=== PATIENT | female | born 1965 | race Caucasian/White ===

== ENCOUNTER 2019-01-08 06:01 | Day surgery (SDC) | payer OTHER ==
[2019-01-08] MEDS ORDERED: Ketamine HCl 50 MG/ML IV ONE (06:02)
[2019-01-08] MEDS ORDERED: DIPRIVAN 200 MG/20 ML IV ONE ×2 (06:02)
[2019-01-08] MEDS ORDERED: Lactated Ringers 1,000 ML IV SCH (06:30)
--- NOTE | 2019-01-08 08:28 | OP ---
SURGERY DATE/TIME: 01/08/2019 0718 PREOPERATIVE DIAGNOSIS: History of colon polyps. POSTOPERATIVE DIAGNOSIS: Normal colon. PROCEDURE: Colonoscopy. SURGEON: Dr. Padron. ANESTHESIA: MAC. Medications given by anesthesia department. HISTORY: The patient is a 53 year-old white female presenting now for colonoscopic evaluation. She reports she had history of colon polyps five years ago and her father of colon cancer. The patient is felt the need to have endoscopic evaluation. She was appraised of the risks of the procedure including the risk of perforation, phlebitis, untoward reaction to medication, bleeding and missed lesions. The patient verbalized her understanding and desired to have the procedure performed. DESCRIPTION OF PROCEDURE: The patient was given the medications by the anesthesia department. She had continuous pulse oximetry, ECG monitoring, intermittent blood pressure monitoring and tidal CO2 monitoring during the examination. She was placed in the left lateral decubitus position. A digital rectal examination was performed and revealed normal anal sphincter tone and no masses. The flexible Olympus pediatric colonoscope was used to intubate the rectum. A view of the colon was developed sequentially to the cecum. Upon insertion and withdrawal, including a retroflex view in the rectum, no mucosal lesions were encountered. The scope was removed from the patient who tolerated the procedure well and was sent back to OP recovery in good condition. Prep was noted to be good.
[2019-01-08 08:40] VITALS: O2SAT 99
[2019-01-08 08:59] VITALS: BP 140/85; PULSE 75
== END 2019-01-08 09:16 | disposition home or self-care (01) ==
LOC: SDC 06:01
PROVIDERS: ATTEND Family Medicine
DX: Z86.010 Personal history of colon polyps (principal); Z80.0 Family history of malignant neoplasm of digestive organs
CPT/HCPCS: J2704

== ENCOUNTER 2021-07-17 06:58 | Day surgery (SDC) | payer OTHER ==
[2021-07-17] MEDS ORDERED: Lactated Ringers 1,000 ML IV SCH (07:30)
[2021-07-17] MEDS ORDERED: ASTRINGYN 8 GM TP ONE (07:43)
[2021-07-17] MEDS ORDERED: XYLOCAINE 1%/Epi 1:100000 MDV 20 ML ONE (07:44)
[2021-07-17] MEDS ORDERED: TORAdol 30 mg Injection ONE (09:07)
[2021-07-17] MEDS ORDERED: Versed 2 MG/2 ML Injection ONE (09:13)
[2021-07-17] MEDS ORDERED: SUBLIMAZE 100 MCG/2 ML ONE (09:13)
[2021-07-17] MEDS ORDERED: DIPRIVAN 200 MG/20 ML IV ONE (09:15)
[2021-07-17] MEDS ORDERED: Decadron 4 MG INJ ONE (09:15)
[2021-07-17] MEDS ORDERED: Zofran 4 MG/2 ML VIAL ONE (09:15)
[2021-07-17 11:00] VITALS: O2SAT 98
[2021-07-17 11:17] VITALS: BP 124/68; PULSE 72
--- NOTE | 2021-07-18 08:06 | OP ---
SURGERY DATE/TIME: 07/17/2021 0936 PREOPERATIVE DIAGNOSIS: Recurrent cervical dysplasia. POSTOPERATIVE DIAGNOSIS: Recurrent cervical dysplasia. PROCEDURE: Loop electrosurgical excision procedure. SURGEON: Stanton Velasco D.O. RATINGS ANALYST: Lissette Marie surgical coordinator. ANESTHESIA: General. ESTIMATED BLOOD LOSS: Minimal. COMPLICATIONS: None. INDICATIONS: The risks, benefits, indications and alternatives of the procedure were reviewed with the patient prior to procedure. The patient understood the risk of infection, bleeding, bowel injury, bladder injury, cervical laceration, pelvic infection associated with the surgery however desires to have this surgery as a possible means to alleviate her current medical condition. DESCRIPTION OF PROCEDURE AND FINDINGS: At this point the patient is taken to the operating room, given general sedation, placed in dorsal lithotomy position, prepped and draped in the usual sterile fashion. A coated speculum is then placed in the patient's vagina and the cervix was injected circumferentially with 1% lidocaine with epinephrine and approximately 6 cc of solution was used. From this point the loop instrument was then used with a right to left motion and a depth of 7 to 8 mm of endocervical tissue was excised without complication. An additional 2 to 3 mm of endocervical tissue was taken in a similar fashion with a right to left motion. From this point the loop tobacco drummer ball was used to coagulate the surface of the cervix enhancing hemostasis. From this point all instruments were then removed from the patient's vaginal region. The patient was taken out of the dorsal lithotomy position, was then taken to the recovery room in stable condition. All instruments and laps were accounted for x2.
== END 2021-07-17 11:10 | disposition home or self-care (01) ==
LOC: SDC 06:58
PROVIDERS: ATTEND Obstetrics & Gynecology
DX: N87.9 Dysplasia of cervix uteri, unspecified (principal)
CPT/HCPCS: 57460; 88305; J1100; J1885; J2250; J2405; J2704; J3010; A9270-GY

== ENCOUNTER 2022-06-18 06:35 | Day surgery (SDC) | payer OTHER ==
[2022-06-18] MEDS ORDERED: ASTRINGYN 8 GM TP ONE (06:51)
[2022-06-18] MEDS ORDERED: Lactated Ringers 1,000 ML IV ONE ×2 (06:52→07:08)
[2022-06-18] MEDS ORDERED: XYLOCAINE 1%/Epi 1:100000 MDV 20 ML ONE (06:52)
[2022-06-18] MEDS ORDERED: Lactated Ringers 1,000 ML IV SCH (07:00)
[2022-06-18] MEDS ORDERED: CEFAZOLIN 2 GM-D5W BAG** 2 GM/50 ML ML IV ONE (07:45)
[2022-06-18] MEDS ORDERED: CEFAZOLIN 2 GM-D5W BAG** 2 GM/50 ML ML IV SCH (08:00)
[2022-06-18] MEDS ORDERED: DIPRIVAN 200 MG/20 ML IV ONE (08:30)
[2022-06-18] MEDS ORDERED: Decadron 4 MG INJ ONE (08:30)
[2022-06-18] MEDS ORDERED: Xylocaine-Mpf 2% 5 Ml Vial ONE (08:30)
[2022-06-18] MEDS ORDERED: Zofran 4 MG/2 ML VIAL ONE (08:30)
[2022-06-18] MEDS ORDERED: TORAdol 30 mg Injection ONE (08:31)
[2022-06-18] MEDS ORDERED: SUBLIMAZE 100 MCG/2 ML ONE (08:31)
[2022-06-18 10:09] VITALS: BP 136/94; PULSE 67; O2SAT 98
--- NOTE | 2022-06-19 09:01 | OP ---
SURGERY DATE/TIME: 06/18/2022 0845 PREOPERATIVE DIAGNOSIS: Recurrent cervical dysplasia. POSTOPERATIVE DIAGNOSIS: Recurrent cervical dysplasia. PROCEDURE: Loop electrosurgical excision procedure (LEEP). SURGEON: Stanton Velasco D.O. PSYCHOTHERAPIST: Fe Jim neurosurgical physician assistant. ANESTHESIA: General. ESTIMATED BLOOD LOSS: Minimal. COMPLICATIONS: None. INDICATIONS: The risks, benefits, indications and alternatives of the procedure were reviewed with the patient prior to procedure. The patient understood the risk of infection, bleeding, pelvic infection, cervical infection, thromboembolic disorder associated with this surgery and desires to have this surgery as a possible means to alleviate her current medical condition. DESCRIPTION OF PROCEDURE AND FINDINGS: At this point the patient is taken to the operating room, given general sedation, placed in dorsal lithotomy position, prepped and draped in the usual sterile fashion. A coated speculum is then placed into the patient's vagina and the cervix was then injected circumferentially with 1% lidocaine with epinephrine and approximately 10 cc was used. A loop instrument was then used to excise the ectocervical portion where an in depth of 7 to 8 mm of ectocervical tissue was excised in a right to left motion and was done so without complication. An additional 2 to 3 mm of endocervical tissue was excised in a similar fashion. Hemostasis was obtained by placing a loop doughnut icer ball on the surface of the cervix. From this point there was no bleeding that was noted from the cervix. From this point all instruments were removed from the patient's vaginal region. The patient was then taken out of the dorsal lithotomy position and was then taken out of anesthesia and was then taken to the recovery room in stable condition. All instruments and laps were accounted for x2.
== END 2022-06-18 10:05 | disposition home or self-care (01) ==
LOC: SDC 06:35
PROVIDERS: ATTEND Obstetrics & Gynecology
DX: N87.9 Dysplasia of cervix uteri, unspecified (principal)
CPT/HCPCS: J0690; J1100; J1885; J2405; J2704; J3010; A9270-GY